=== PATIENT | female | born 1980 | race African-American/Black ===

== ENCOUNTER 2018-07-25 18:54 | Inpatient (IN) ==
[2018-07-25] MEDS ORDERED: SODIUM CHLORIDE 0.9% 2,200 ML IV ONE (21:18)
[2018-07-25] MEDS ORDERED: ALBUTEROL 2.5 MG/3 ML NEB RESP TX PRN (21:18)
[2018-07-25] MEDS ORDERED: GLUCAGON 1 MG VIAL IM PRN (21:18)
[2018-07-25] MEDS ORDERED: DEXTROSE 50% 25 GM/50 ML SYRINGE IV PRN (21:18)
[2018-07-25] MEDS ORDERED: ONDANSETRON 4 MG/2 ML VIAL IV PRN (21:18)
[2018-07-25] MEDS ORDERED: ACETAMINOPHEN 325 MG TABLET PO PRN (21:18)
[2018-07-25] MEDS ORDERED: ZALEPLON 5 MG CAPSULE PO PRN (21:18)
[2018-07-25] MEDS ORDERED: MELOXICAM 7.5 MG TABLET PO PRN (21:28)
[2018-07-25] MEDS: PHENYTOIN ER 100 MG CAPSULE PO SCH (22:19)
[2018-07-25] MEDS: GABAPENTIN 300 MG CAPSULE PO SCH (22:19)
[2018-07-25] MEDS: levETIRAcetam 500 MG TABLET PO SCH (22:19)
[2018-07-25] MEDS: INSULIN REGULAR 100 UNIT/ML SUBCUT SCH (22:20)
[2018-07-25] MEDS: ENOXAPARIN 30 MG/0.3 ML SYRINGE SUBCUT SCH (22:24)
[2018-07-26] MEDS: SODIUM CHLORIDE 0.9% 1,000 ML IV SCH ×3 (00:41→16:08)
[2018-07-26 07:23] LABS: Basophils % 0.4 % (0.0-0.8); Eosinophils # 0.4 10*3/uL (0.0-0.87); Eosinophils % 6.8 % (0.00-10.9); Immature Granulocytes % 0.2 %; Immature Granulocytes Absolute 0.01 #; Lymphocytes # 1.6 10*3/uL (1.4-4.0); Lymphocytes % 29.1 % (21.3-54.2); Mean Corpuscular HGB Conc 29.6 GM/DL (32-36); Mean Corpuscular Hemoglobin 23 PG (27-34); Mean Corpuscular Volume 77.8 FL (87-102); Mean Platelet Volume 9.3 FL (9.6-12.0); Monocytes # 0.5 10*3/uL (0.11-0.8); Monocytes % 8.4 % (1.7-12.7); Neutrophils # 2.9 10*3/uL (1.4-7.4); Neutrophils % 55.1 % (38.7-73.9); Platelet Count 195 T/CUMM (130-400); Red Blood Count 3.47 MC/CUMM (3.8-5.5); White Blood Count 5.3 T/CUMM (4-12)
[2018-07-26 07:37] LABS: Alanine Aminotransferase 18 U/L (13-56); Albumin 2.3 G/DL (3.4-5.0); Alkaline Phosphatase 119 U/L (45-117); Aspartate Amino Transferase 19 U/L (0-37); Bilirubin,Total < 0.39 MG/DL (0.2-1.0); Blood Urea Nitrogen 35 MG/DL (7-18); Calcium 6.9 MG/DL (8.5-10.1); Glucose 144 MG/DL (74-106); Osmolality,Calculated 287.5 MOS/KG (273-304); Potassium 4.3 MMOL/L (3.5-5.1); Sodium 139 MMOL/L (136-145); Total Protein 5.9 G/DL (6.4-8.3)
[2018-07-26] MEDS: INSULIN REGULAR 100 UNIT/ML SUBCUT SCH ×4 (07:43→20:18)
[2018-07-26] MEDS: levETIRAcetam 500 MG TABLET PO SCH ×2 (08:52→20:16)
[2018-07-26] MEDS: PIPERACILLIN/TAZOBACTAM 3,375 MG in SODIUM CHLORIDE 0.9% 100 ML IV SCH ×2 (08:52→20:17)
[2018-07-26] MEDS: PANTOPRAZOLE 40 MG TABLET PO SCH (08:52)
[2018-07-26] MEDS: PHENYTOIN ER 100 MG CAPSULE PO SCH ×3 (08:52→20:16)
[2018-07-26] MEDS: GABAPENTIN 300 MG CAPSULE PO SCH ×3 (08:52→20:17)
[2018-07-26] MEDS: METOPROLOL TARTRATE 25 MG TABLET PO SCH ×2 (09:59→20:17)
[2018-07-26] MEDS: amLODIPine 10 MG TABLET PO SCH (09:59)
[2018-07-26] MEDS: ENOXAPARIN 30 MG/0.3 ML SYRINGE SUBCUT SCH (20:31)
[2018-07-26 21:39] LABS: Apearance,Urine CLOUDY (Clear); Bacteria,Urine Many /HPF (Few); Bilirubin,Urine Negative (Negative); Blood, Urine Large mg/dL (Negative); Glucose,Urine (UA) 50 mg/dL (Negative); Ketones,Urine 5 mg/dL (Negative); Nitrite,Urine Positive (Negative); Protein,Urine 100 MG/DL; RBC,Urine 158 /HPF (0-4); Squamous Epithelial Cell,Urine Occasional /HPF (0-10); Urine Color Yellow (Yellow); Urine Urobilinogen < 2.0 EU/DL (0.2-1.0)
[2018-07-26 21:48] LABS: WBC,Urine TNTC /HPF (0-6)
[2018-07-27] MEDS: SODIUM CHLORIDE 0.9% 1,000 ML IV SCH ×2 (00:51→07:59)
[2018-07-27] MEDS: INSULIN REGULAR 100 UNIT/ML SUBCUT SCH ×4 (09:35→20:42)
[2018-07-27] MEDS: levETIRAcetam 500 MG TABLET PO SCH ×2 (09:36→20:45)
[2018-07-27] MEDS: PIPERACILLIN/TAZOBACTAM 3,375 MG in SODIUM CHLORIDE 0.9% 100 ML IV SCH ×2 (09:36→20:45)
[2018-07-27] MEDS: amLODIPine 10 MG TABLET PO SCH (09:36)
[2018-07-27] MEDS: GABAPENTIN 300 MG CAPSULE PO SCH ×3 (09:36→20:45)
[2018-07-27] MEDS: PHENYTOIN ER 100 MG CAPSULE PO SCH ×3 (09:36→20:42)
[2018-07-27] MEDS: PANTOPRAZOLE 40 MG TABLET PO SCH (09:36)
[2018-07-27] MEDS: METOPROLOL TARTRATE 25 MG TABLET PO SCH ×2 (09:36→20:45)
[2018-07-27] MEDS ORDERED: INSULIN GLARGINE 100 UNIT/ML SUBCUT SCH (21:00)
[2018-07-27] MEDS: ENOXAPARIN 30 MG/0.3 ML SYRINGE SUBCUT SCH (22:16)
[2018-07-28 04:36] LABS: Basophils % 0.5 % (0.0-0.8); Eosinophils # 0.4 10*3/uL (0.0-0.87); Hematocrit 27.2 VOL% (35.7-47.0); Hemoglobin 8.1 GM/DL (12.0-16.0); Immature Granulocytes % 0.5 %; Immature Granulocytes Absolute 0.03 #; Lymphocytes # 2.7 10*3/uL (1.4-4.0); Lymphocytes % 48.2 % (21.3-54.2); Mean Corpuscular HGB Conc 29.8 GM/DL (32-36); Mean Corpuscular Hemoglobin 23 PG (27-34); Mean Corpuscular Volume 77.1 FL (87-102); Mean Platelet Volume 11.1 FL (9.6-12.0); Monocytes # 0.5 10*3/uL (0.11-0.8); Monocytes % 8.1 % (1.7-12.7); Neutrophils % 35.7 % (38.7-73.9); Platelet Count 207 T/CUMM (130-400); Red Blood Count 3.53 MC/CUMM (3.8-5.5); Red Cell Distribution Width 15.4 % (9.3-17.3); White Blood Count 5.6 T/CUMM (4-12)
[2018-07-28 04:46] LABS: Calcium 7.6 MG/DL (8.5-10.1); Osmolality,Calculated 283.7 MOS/KG (273-304); Potassium 3.9 MMOL/L (3.5-5.1)
[2018-07-28 06:07] LABS: Anisocytosis 1+; Eosinophils 7 % (0-10); Lymphocytes 48 % (20-55); Platelet Estimate Adequate; Segmented Neutrophils 40 % (50-85); Total Cells Counted 100
[2018-07-28 06:08] LABS: Hypochromasia 1+
[2018-07-28] MEDS: INSULIN LISPRO 100 UNIT/ML SUBCUT SCH ×3 (08:52→17:10)
[2018-07-28] MEDS: PIPERACILLIN/TAZOBACTAM 3,375 MG in SODIUM CHLORIDE 0.9% 100 ML IV SCH (08:53)
[2018-07-28] MEDS: INSULIN REGULAR 100 UNIT/ML SUBCUT SCH ×3 (08:53→16:15)
[2018-07-28] MEDS: levETIRAcetam 500 MG TABLET PO SCH (08:55)
[2018-07-28] MEDS: GABAPENTIN 300 MG CAPSULE PO SCH ×2 (08:55→14:40)
[2018-07-28] MEDS: PHENYTOIN ER 100 MG CAPSULE PO SCH ×2 (08:56→14:40)
[2018-07-28] MEDS: amLODIPine 10 MG TABLET PO SCH (08:56)
[2018-07-28] MEDS: PANTOPRAZOLE 40 MG TABLET PO SCH (08:56)
[2018-07-28] MEDS: METOPROLOL TARTRATE 25 MG TABLET PO SCH (08:56)
[2018-07-28 16:18] VITALS: BP 147/83
== END 2018-07-28 17:20 | disposition home or self-care (01) | DRG 463 ==
LOC: SUATTDRO 20:36 → N.ICU 20:36 → N.5E 07-27 13:55
PROVIDERS: ADMIT Internal Medicine; ATTEND Hospitalist

== ENCOUNTER 2019-02-26 13:32 | Inpatient (IN) ==
[2019-02-26] MEDS ORDERED: PROPOFOL 1,000 MG/100 ML BOTTLE IV ONE (14:38)
[2019-02-26] MEDS: PROPOFOL 1,000 MG/100 ML BOTTLE IV SCH (16:45)
[2019-02-26 17:05] LABS: ABG Base Excess -6.5 MMOL/L (-2.5-2.5); ABG HCO3 19.1 MMOL/L (20-26); ABG PCO2 23.8 MM HG (35-48); ABG PH 7.451 (7.35-7.45); ABG TCO2 15.5 MMOL/L (23-27)
[2019-02-26] MEDS ORDERED: MIDAZOLAM 100 MG in SODIUM CHLORIDE 0.9% 80 ML IV PRN (17:20)
[2019-02-26] MEDS ORDERED: MAGNESIUM SULF RIDER 4 GM in PREMIX 1 EACH IV PRN (17:20)
[2019-02-26] MEDS ORDERED: MAGNESIUM SULF RIDER 2 GM in PREMIX 1 EACH IV PRN (17:20)
[2019-02-26] MEDS ORDERED: INFLUENZA VIRUS VACCINE 0.5 ML SYRINGE IM ONE (17:21)
[2019-02-26] MEDS ORDERED: LORazepam 2 MG/1 ML VIAL IV PRN (17:23)
[2019-02-26 17:37] LABS: Apearance,Urine CLEAR (Clear); Bacteria,Urine Occasional /HPF (Few); Bilirubin,Urine Negative (Negative); Blood, Urine Negative (Negative); Glucose,Urine (UA) >=500 mg/dL (Negative); Ketones,Urine 5 mg/dL (Negative); Nitrite,Urine Negative (Negative); Protein,Urine 100 MG/DL; RBC,Urine 3 /HPF (0-4); Urine Color Colorless (Yellow); Urine Specific Gravity 1.009 (1.001-1.035); Urine Urobilinogen < 2.0 EU/DL (0.2-1.0); WBC,Urine 2 /HPF (0-6)
[2019-02-26] MEDS: SODIUM CHLORIDE 0.9% 1,000 ML IV SCH ×2 (17:50→22:12)
[2019-02-26] MEDS: PIPERACILLIN/TAZOBACTAM 3,375 MG in SODIUM CHLORIDE 0.9% 100 ML IV SCH (18:09)
[2019-02-26] MEDS: PHENYTOIN 100 MG/2 ML VIAL IV SCH (18:10)
[2019-02-26] MEDS: FAMOTIDINE 20 MG TABLET PO SCH (21:31)
[2019-02-26] MEDS: HEPARIN 5,000 UNIT/1 ML VIAL SUBCUT SCH (21:31)
[2019-02-26] MEDS: POTASSIUM CHLORIDE RIDER 10 MEQ in PREMIX 1 EACH IV PRN ×2 (22:08→23:16)
[2019-02-26] MEDS ORDERED: DEXTROSE 50% 25 GM/50 ML VIAL IV PRN (23:24)
[2019-02-26] MEDS ORDERED: GLUCAGON 1 MG VIAL IM PRN (23:24)
[2019-02-26] MEDS: INSULIN REGULAR 100 UNIT/ML SUBCUT SCH (23:59)
[2019-02-27] MEDS: PROPOFOL 1,000 MG/100 ML BOTTLE IV SCH ×2 (00:25→07:31)
[2019-02-27] MEDS: PHENYTOIN 100 MG/2 ML VIAL IV SCH ×2 (01:28→09:09)
[2019-02-27] MEDS: PIPERACILLIN/TAZOBACTAM 3,375 MG in SODIUM CHLORIDE 0.9% 100 ML IV SCH ×3 (01:29→17:45)
[2019-02-27] MEDS: SODIUM CHLORIDE 0.9% 1,000 ML IV SCH ×5 (02:14→23:58)
[2019-02-27 04:02] LABS: Basophils % 0.4 % (0.0-0.8); Eosinophils # 0.2 10*3/uL (0.0-0.87); Eosinophils % 2.2 % (0.00-10.9); Hematocrit 23.1 VOL% (35.7-47.0); Hemoglobin 7.3 GM/DL (12.0-16.0); Immature Granulocytes % 0.5 %; Immature Granulocytes Absolute 0.05 #; Lymphocytes # 2.3 10*3/uL (1.4-4.0); Mean Corpuscular HGB Conc 31.6 GM/DL (32-36); Mean Corpuscular Volume 72.4 FL (87-102); Mean Platelet Volume 9.6 FL (9.6-12.0); Monocytes % 7.5 % (1.7-12.7); Neutrophils % 66.4 % (38.7-73.9); Platelet Count 255 T/CUMM (130-400); Red Blood Count 3.19 MC/CUMM (3.8-5.5); Red Cell Distribution Width 16.1 % (9.3-17.3)
[2019-02-27 04:26] LABS: Alanine Aminotransferase 11 U/L (13-56); Alkaline Phosphatase 97 U/L (45-117); Aspartate Amino Transferase 14 U/L (0-37); Bilirubin,Total < 0.39 MG/DL (0.2-1.0); Blood Urea Nitrogen 16 MG/DL (7-18); Calcium 6.7 MG/DL (8.5-10.1); Estimated Glom Filtration Rate 56 ML/MIN; Glucose 218 MG/DL (74-106); Total Protein 5.7 G/DL (6.4-8.3)
[2019-02-27 05:01] LABS: ABG Base Excess -6.2 MMOL/L (-2.5-2.5); ABG HCO3 17.5 MMOL/L (20-26); ABG Oxygen Saturation 99.2 % (95-100); ABG PCO2 27.9 MM HG (35-48); ABG PH 7.415 (7.35-7.45); ABG PO2 341.9 MM HG (80-95); ABG TCO2 18.3 MMOL/L (23-27); Allen Test Positive; Pt O2 Delivery Device Ventilator
[2019-02-27 05:30] LABS: Hepatitis B Core IgM Quant 0.23 Index; Hepatitis B Surface Ag Quant < 0.10 Index; Hepatitis B Surface Ag Result Negative (Negative); Hepatitis C Virus Ab Quant > 11.00 Index; Hepatitis C Virus Ab Result Positive (Negative)
[2019-02-27] MEDS: POTASSIUM CHLORIDE RIDER 10 MEQ in PREMIX 1 EACH IV PRN ×2 (05:30→10:51)
[2019-02-27] MEDS: HEPARIN 5,000 UNIT/1 ML VIAL SUBCUT SCH ×3 (05:35→21:36)
[2019-02-27] MEDS: INSULIN REGULAR 100 UNIT/ML SUBCUT SCH ×4 (05:57→23:39)
[2019-02-27] MEDS: FAMOTIDINE 20 MG TABLET PO SCH ×2 (09:09→20:25)
[2019-02-27] MEDS: GABAPENTIN 300 MG CAPSULE PO SCH ×3 (09:10→20:25)
[2019-02-27] MEDS: hydrALAZINE 20 MG/1 ML VIAL IV PRN (14:23)
[2019-02-27] MEDS: levETIRAcetam 250 MG TABLET PO SCH (20:24)
[2019-02-27] MEDS ORDERED: NITROGLYCERIN SL 0.4 MG TABLET SL ONE (21:11)
[2019-02-27] MEDS ORDERED: NITROGLYCERIN SL 0.4 MG TABLET SL PRN (21:57)
[2019-02-28] MEDS: hydrALAZINE 20 MG/1 ML VIAL IV PRN (00:06)
[2019-02-28] MEDS: PIPERACILLIN/TAZOBACTAM 3,375 MG in SODIUM CHLORIDE 0.9% 100 ML IV SCH ×3 (02:13→17:08)
[2019-02-28 02:26] LABS: Basophils # 0.1 10*3/uL (0.0-0.2); Basophils % 0.6 % (0.0-0.8); Eosinophils # 0.3 10*3/uL (0.0-0.87); Eosinophils % 3.6 % (0.00-10.9); Hematocrit 25.1 VOL% (35.7-47.0); Hemoglobin 7.7 GM/DL (12.0-16.0); Immature Granulocytes % 0.3 %; Immature Granulocytes Absolute 0.03 #; Lymphocytes # 2.7 10*3/uL (1.4-4.0); Lymphocytes % 31.1 % (21.3-54.2); Mean Corpuscular HGB Conc 30.7 GM/DL (32-36); Mean Platelet Volume 9.7 FL (9.6-12.0); Neutrophils % 56.4 % (38.7-73.9); Platelet Count 264 T/CUMM (130-400); Red Blood Count 3.39 MC/CUMM (3.8-5.5); White Blood Count 8.8 T/CUMM (4-12)
[2019-02-28 02:44] LABS: Alanine Aminotransferase 13 U/L (13-56); Albumin 1.9 G/DL (3.4-5.0); Alkaline Phosphatase 98 U/L (45-117); Aspartate Amino Transferase 16 U/L (0-37); Bilirubin,Total < 0.39 MG/DL (0.2-1.0); Blood Urea Nitrogen 9 MG/DL (7-18); Calcium 6.5 MG/DL (8.5-10.1); Estimated Glom Filtration Rate 59 ML/MIN; Glucose 190 MG/DL (74-106); Osmolality,Calculated 286.1 MOS/KG (273-304); Total Protein 5.6 G/DL (6.4-8.3)
[2019-02-28] MEDS: SODIUM CHLORIDE 0.9% 1,000 ML IV SCH ×2 (03:12→07:50)
[2019-02-28 03:44] LABS: ABG Base Excess -8.4 MMOL/L (-2.5-2.5); ABG HCO3 17.3 MMOL/L (20-26); ABG Oxygen Saturation 97.7 % (95-100); ABG PCO2 36.3 MM HG (35-48); ABG PH 7.296 (7.35-7.45); ABG PO2 113.8 MM HG (80-95); ABG TCO2 18.4 MMOL/L (23-27)
[2019-02-28] MEDS: HEPARIN 5,000 UNIT/1 ML VIAL SUBCUT SCH ×3 (05:08→21:04)
[2019-02-28] MEDS: INSULIN REGULAR 100 UNIT/ML SUBCUT SCH ×6 (05:09→23:35)
[2019-02-28] MEDS ORDERED: MAGNESIUM SULF RIDER 2 GM in PREMIX 1 EACH IV ONE (08:04)
[2019-02-28] MEDS: FAMOTIDINE 20 MG TABLET PO SCH ×2 (08:40→20:57)
[2019-02-28] MEDS: levETIRAcetam 250 MG TABLET PO SCH ×2 (08:40→20:57)
[2019-02-28] MEDS: GABAPENTIN 300 MG CAPSULE PO SCH ×3 (08:40→20:57)
[2019-03-01] MEDS: PIPERACILLIN/TAZOBACTAM 3,375 MG in SODIUM CHLORIDE 0.9% 100 ML IV SCH ×2 (02:24→09:20)
[2019-03-01 04:44] LABS: Basophils % 0.6 % (0.0-0.8); Eosinophils # 0.3 10*3/uL (0.0-0.87); Eosinophils % 5.9 % (0.00-10.9); Hematocrit 26.5 VOL% (35.7-47.0); Immature Granulocytes % 0.4 %; Immature Granulocytes Absolute 0.02 #; Lymphocytes # 1.9 10*3/uL (1.4-4.0); Lymphocytes % 39.1 % (21.3-54.2); Mean Corpuscular HGB Conc 30.2 GM/DL (32-36); Mean Corpuscular Volume 73.8 FL (87-102); Mean Platelet Volume 9.5 FL (9.6-12.0); Monocytes % 7.3 % (1.7-12.7); Neutrophils % 46.7 % (38.7-73.9); Platelet Count 273 T/CUMM (130-400); Red Blood Count 3.59 MC/CUMM (3.8-5.5); Red Cell Distribution Width 17.2 % (9.3-17.3); White Blood Count 4.9 T/CUMM (4-12)
[2019-03-01 05:09] LABS: Albumin 2.1 G/DL (3.4-5.0); Bilirubin,Total 0.6 MG/DL (0.2-1.0); Calcium 7.8 MG/DL (8.5-10.1); Osmolality,Calculated 286.3 MOS/KG (273-304); Total Protein 6.6 G/DL (6.4-8.3)
[2019-03-01] MEDS: HEPARIN 5,000 UNIT/1 ML VIAL SUBCUT SCH ×3 (05:51→21:48)
[2019-03-01] MEDS: INSULIN REGULAR 100 UNIT/ML SUBCUT SCH ×4 (08:15→21:47)
[2019-03-01] MEDS: levETIRAcetam 250 MG TABLET PO SCH ×2 (08:17→21:48)
[2019-03-01] MEDS: GABAPENTIN 300 MG CAPSULE PO SCH ×3 (08:17→21:48)
[2019-03-01] MEDS: hydrALAZINE 20 MG/1 ML VIAL IV PRN (08:18)
[2019-03-01] MEDS: FAMOTIDINE 20 MG TABLET PO SCH ×2 (08:18→21:48)
[2019-03-01] MEDS ORDERED: BUTALBITAL/ACETAMIN/CAFFEINE 50-325-40 MG TABLET PO ONE (09:09)
[2019-03-01] MEDS ORDERED: carvediloL 3.125 MG TABLET PO SCH (09:37)
[2019-03-01] MEDS: amLODIPine 10 MG TABLET PO SCH (11:05)
[2019-03-01] MEDS ORDERED: METOPROLOL TARTRATE 50 MG TABLET PO ONE (11:47)
[2019-03-01] MEDS ORDERED: SODIUM CHLORIDE 0.9% 500 ML IV ONE (12:00)
[2019-03-01] MEDS ORDERED: SUMAtriptan 6 MG/0.5 ML VIAL SUBCUT ONE (12:35)
[2019-03-02] MEDS: HEPARIN 5,000 UNIT/1 ML VIAL SUBCUT SCH (05:06)
[2019-03-02] MEDS: INSULIN REGULAR 100 UNIT/ML SUBCUT SCH ×2 (07:25→11:54)
[2019-03-02] MEDS: hydrALAZINE 20 MG/1 ML VIAL IV PRN (07:27)
[2019-03-02 08:12] LABS: Basophils # 0.1 10*3/uL (0.0-0.2); Basophils % 0.8 % (0.0-0.8); Eosinophils # 0.3 10*3/uL (0.0-0.87); Eosinophils % 4.3 % (0.00-10.9); Hematocrit 27.9 VOL% (35.7-47.0); Hemoglobin 8.7 GM/DL (12.0-16.0); Immature Granulocytes % 0.3 %; Immature Granulocytes Absolute 0.02 #; Lymphocytes # 2.6 10*3/uL (1.4-4.0); Lymphocytes % 39.9 % (21.3-54.2); Mean Corpuscular HGB Conc 31.2 GM/DL (32-36); Mean Corpuscular Volume 73.4 FL (87-102); Mean Platelet Volume 10.1 FL (9.6-12.0); Monocytes % 6.6 % (1.7-12.7); Neutrophils % 48.1 % (38.7-73.9); Platelet Count 275 T/CUMM (130-400); Red Cell Distribution Width 17.2 % (9.3-17.3); White Blood Count 6.5 T/CUMM (4-12)
[2019-03-02 08:30] LABS: Alanine Aminotransferase 16 U/L (13-56); Albumin 2.4 G/DL (3.4-5.0); Alkaline Phosphatase 106 U/L (45-117); Aspartate Amino Transferase 12 U/L (0-37); Bilirubin,Total < 0.39 MG/DL (0.2-1.0); Blood Urea Nitrogen 10 MG/DL (7-18); Calcium 8.2 MG/DL (8.5-10.1); Estimated Glom Filtration Rate 49 ML/MIN; Glucose 297 MG/DL (74-106); Osmolality,Calculated 282.8 MOS/KG (273-304)
[2019-03-02] MEDS ORDERED: METOPROLOL TARTRATE 25 MG TABLET PO ONE (08:36)
[2019-03-02] MEDS: levETIRAcetam 250 MG TABLET PO SCH (09:25)
[2019-03-02] MEDS: FAMOTIDINE 20 MG TABLET PO SCH (09:25)
[2019-03-02] MEDS: amLODIPine 10 MG TABLET PO SCH (09:25)
[2019-03-02] MEDS: GABAPENTIN 300 MG CAPSULE PO SCH (09:25)
[2019-03-02 12:10] VITALS: BP 138/75
== END 2019-03-02 14:35 | disposition home or self-care (01) | DRG 53 ==
LOC: N.ICU 16:00 → SUATTDRO 16:00 → INTOOBSV 16:00 → SUATTDRO 02-27 10:08 → N.4E 02-28 13:46
PROVIDERS: ADMIT Internal Medicine; ATTEND Hospitalist

== ENCOUNTER 2019-12-27 12:10 | Inpatient (IN) ==
[2019-12-27] MEDS ORDERED: ONDANSETRON 4 MG/2 ML VIAL IV PRN (15:12)
[2019-12-27] MEDS ORDERED: ACETAMINOPHEN 325 MG TABLET PO PRN (15:12)
[2019-12-27] MEDS ORDERED: hydrALAZINE 20 MG/1 ML VIAL IV PRN (15:12)
[2019-12-27] MEDS ORDERED: DEXTROSE 50% 25 GM/50 ML VIAL IV PRN (15:15)
[2019-12-27] MEDS ORDERED: GLUCAGON 1 MG VIAL IM PRN (15:15)
[2019-12-27] MEDS ORDERED: INSULIN REGULAR DRIP 100 ML IV PRN (15:38)
[2019-12-27] MEDS ORDERED: LORazepam 2 MG/1 ML VIAL IV PRN (15:40)
[2019-12-27] MEDS ORDERED: DEXTROSE 50% 25 GM/50 ML VIAL IV ONE (15:54)
[2019-12-27] MEDS ORDERED: SODIUM BICARB INJ 150 MEQ in DEXTROSE 5% 850 ML IV SCH (16:00)
[2019-12-27 16:20] LABS: Basophils # 0.1 10*3/uL (0.0-0.2); Basophils % 0.9 % (0.0-0.8); Eosinophils # 0.2 10*3/uL (0.0-0.87); Eosinophils % 1.7 % (0.00-10.9); Hematocrit 31.3 VOL% (35.7-47.0); Hemoglobin 10.5 GM/DL (12.0-16.0); Immature Granulocytes % 8.1 %; Immature Granulocytes Absolute 0.73 #; Lymphocytes # 1.5 10*3/uL (1.4-4.0); Lymphocytes % 16.7 % (21.3-54.2); Mean Corpuscular HGB Conc 33.5 GM/DL (32-36); Mean Corpuscular Volume 76.9 FL (87-102); Mean Platelet Volume 10.4 FL (9.6-12.0); Monocytes % 16.6 % (1.7-12.7); Platelet Count 320 T/CUMM (130-400); Red Blood Count 4.07 MC/CUMM (3.8-5.5); Red Cell Distribution Width 21.5 % (9.3-17.3)
[2019-12-27 16:40] LABS: Alanine Aminotransferase 13 U/L (13-56); Albumin 1.6 G/DL (3.4-5.0); Alkaline Phosphatase 65 U/L (45-117); Aspartate Amino Transferase 25 U/L (0-37); Bilirubin,Total < 0.39 MG/DL (0.2-1.0); Blood Urea Nitrogen 94 MG/DL (7-18); Calcium 8.6 MG/DL (8.5-10.1); Estimated Glom Filtration Rate 3 ML/MIN; Osmolality,Calculated 311.8 MOS/KG (273-304); Total Protein 6.5 G/DL (6.4-8.3)
[2019-12-27 16:48] LABS: INR 1.1; PT Patient Result 11.5 SECS (9.8-11.9); Partial Thromboplastin Time 45.3 SECS (23.9-33.8)
[2019-12-27 16:49] LABS: Glucose 40 MG/DL (74-106)
[2019-12-27 17:31] LABS: Hepatitis B Core IgM Quant 0.28 Index; Hepatitis B Surface Ag Quant < 0.10 Index; Hepatitis B Surface Ag Result Negative (Negative); Hepatitis C Virus Ab Quant > 11.00 Index; Hepatitis C Virus Ab Result Positive (Negative)
[2019-12-27 18:03] LABS: Band Neutrophils 10 % (0-10); Eosinophils 3 % (0-10); Lymphocytes 19 % (20-55); Segmented Neutrophils 59 % (50-85); Total Cells Counted 100
[2019-12-27 18:04] LABS: Microcytosis Slight; Platelet Estimate Adequate
[2019-12-27] MEDS: INSULIN LISPRO 100 UNIT/ML SUBCUT SCH ×2 (18:10→21:52)
[2019-12-27 18:41] LABS: Apearance,Urine Slightly Hazy (Clear); Bilirubin,Urine Negative (Negative); Blood, Urine Small mg/dL (Negative); Glucose,Urine (UA) >=500 mg/dL (Negative); Ketones,Urine Negative (Negative); Nitrite,Urine Negative (Negative); Protein,Urine >=500 MG/DL; RBC,Urine 65 /HPF (0-4); Squamous Epithelial Cell,Urine Occasional /HPF (0-10); Urine Color Yellow (Yellow); Urine Specific Gravity 1.018 (1.001-1.035); Urine Urobilinogen < 2.0 EU/DL (0.2-1.0); WBC,Urine 45 /HPF (0-6)
[2019-12-27 19:09] LABS: Barbiturates Screen,Urine Negative (Negative); Benzodiazepines Screen,Urine Negative (Negative); Cannabinoid Screen,Urine Negative (Negative); Opiate Screen,Urine Negative (Negative); Phencyclidine Screen,Urine Negative (Negative)
[2019-12-27] MEDS: DOCUSATE SODIUM 100 MG CAPSULE PO SCH (21:43)
[2019-12-27] MEDS: FAMOTIDINE 20 MG TABLET PO SCH (21:51)
[2019-12-27] MEDS: PHENYTOIN ER 100 MG CAPSULE PO SCH (21:51)
[2019-12-28 04:35] LABS: Basophils # 0.1 10*3/uL (0.0-0.2); Basophils % 1.2 % (0.0-0.8); Eosinophils # 0.2 10*3/uL (0.0-0.87); Hematocrit 27.5 VOL% (35.7-47.0); Hemoglobin 9.3 GM/DL (12.0-16.0); Immature Granulocytes Absolute 0.99 #; Lymphocytes # 1.5 10*3/uL (1.4-4.0); Lymphocytes % 19.2 % (21.3-54.2); Mean Corpuscular HGB Conc 33.8 GM/DL (32-36); Monocytes % 14.5 % (1.7-12.7); Neutrophils % 50.1 % (38.7-73.9); Platelet Count 149 T/CUMM (130-400); Red Blood Count 3.62 MC/CUMM (3.8-5.5); Red Cell Distribution Width 21.2 % (9.3-17.3); White Blood Count 7.6 T/CUMM (4-12)
[2019-12-28 05:11] LABS: Band Neutrophils 2 % (0-10); Burr Cells Slight; Hypochromasia 1+; Lymphocytes 16 % (20-55); Ovalocytes Slight; Segmented Neutrophils 73 % (50-85); Total Cells Counted 100
[2019-12-28 05:12] LABS: Microcytosis Slight
[2019-12-28 05:18] LABS: Calcium 7.7 MG/DL (8.5-10.1); Osmolality,Calculated 297.5 MOS/KG (273-304); Risk Ratio 3.08; VLDL CHOLESTEROL 17.2 MG/DL
[2019-12-28 06:16] LABS: Sedimentation Rate-Westergren 85 MM/HR (0-20)
[2019-12-28] MEDS ORDERED: HEPARIN 10,000 UNIT/10 ML VIAL IV PRN (06:44)
[2019-12-28] MEDS: INSULIN LISPRO 100 UNIT/ML SUBCUT SCH ×4 (07:51→20:19)
[2019-12-28] MEDS: DOCUSATE SODIUM 100 MG CAPSULE PO SCH ×2 (08:30→20:17)
[2019-12-28] MEDS: PHENYTOIN ER 100 MG CAPSULE PO SCH ×3 (08:30→20:24)
[2019-12-28] MEDS: FAMOTIDINE 20 MG TABLET PO SCH ×2 (08:30→20:17)
[2019-12-28] MEDS ORDERED: levETIRAcetam 500 MG TABLET PO SCH (09:00)
[2019-12-28] MEDS: SERTRALINE 50 MG TABLET PO SCH (20:17)
[2019-12-28] MEDS: GABAPENTIN 300 MG CAPSULE PO SCH (20:17)
[2019-12-28] MEDS: levETIRAcetam 500 MG TABLET PO SCH (20:18)
[2019-12-29] MEDS ORDERED: MORPHINE 4 MG/1 ML VIAL IV PRN (00:02)
[2019-12-29 04:55] LABS: Calcium 7.6 MG/DL (8.5-10.1); Osmolality,Calculated 300.4 MOS/KG (273-304)
[2019-12-29] MEDS: PHENYTOIN ER 100 MG CAPSULE PO SCH ×3 (09:28→20:01)
[2019-12-29] MEDS: GABAPENTIN 300 MG CAPSULE PO SCH ×3 (09:29→20:01)
[2019-12-29] MEDS: DOCUSATE SODIUM 100 MG CAPSULE PO SCH ×2 (09:29→20:02)
[2019-12-29] MEDS: FAMOTIDINE 20 MG TABLET PO SCH ×2 (09:29→20:02)
[2019-12-29] MEDS: METOPROLOL SUCCINATE XL 50 MG TABLET PO SCH (09:29)
[2019-12-29] MEDS: levETIRAcetam 500 MG TABLET PO SCH ×2 (09:30→20:02)
[2019-12-29] MEDS: INSULIN LISPRO 100 UNIT/ML SUBCUT SCH ×3 (09:30→18:59)
[2019-12-29] MEDS ORDERED: ceFAZolin 1,000 MG in SYRINGE 1 EACH IV ONE (12:00)
[2019-12-29] MEDS ORDERED: HEPARIN 5,000 UNIT/1 ML VIAL ONE (15:04)
[2019-12-29] MEDS ORDERED: BUPIVACAINE 0.5% 50 ML VIAL ONE (15:04)
[2019-12-29] MEDS ORDERED: LIDOCAINE 1%/EPI INJ 20 ML VIAL ONE (15:04)
[2019-12-29] MEDS ORDERED: METOCLOPRAMIDE 10 MG/2 ML VIAL ONE (16:13)
[2019-12-29] MEDS ORDERED: FAMOTIDINE 20 MG/2 ML VIAL IV ONE (16:13)
[2019-12-29] MEDS ORDERED: propofoL 200 MG/20 ML VIAL IV ONE (17:38)
[2019-12-29] MEDS ORDERED: CALCIUM CHLORIDE 1,000 MG/10 ML VIAL IV ONE (17:38)
[2019-12-29] MEDS ORDERED: SEVOFLURANE 1 UNIT/15 MINUTE INH ONE (17:38)
[2019-12-29] MEDS ORDERED: PHENYLEPHRINE 1 MG/10 ML SYRINGE IV ONE (17:39)
[2019-12-29] MEDS ORDERED: SODIUM CHLORIDE 0.9% 500 ML IV ONE (17:39)
[2019-12-29] MEDS ORDERED: ONDANSETRON 4 MG/2 ML VIAL ONE (17:39)
[2019-12-29] MEDS: SERTRALINE 50 MG TABLET PO SCH (20:02)
[2019-12-30] MEDS: PHENYTOIN ER 100 MG CAPSULE PO SCH ×5 (00:26→20:57)
[2019-12-30] MEDS: INSULIN LISPRO 100 UNIT/ML SUBCUT SCH ×5 (00:26→20:54)
[2019-12-30 04:37] LABS: Calcium 8.3 MG/DL (8.5-10.1)
[2019-12-30] MEDS: DOCUSATE SODIUM 100 MG CAPSULE PO SCH ×2 (09:37→20:57)
[2019-12-30] MEDS: GABAPENTIN 300 MG CAPSULE PO SCH ×3 (09:38→20:52)
[2019-12-30] MEDS: METOPROLOL SUCCINATE XL 50 MG TABLET PO SCH (09:38)
[2019-12-30] MEDS: FAMOTIDINE 20 MG TABLET PO SCH ×2 (09:38→20:52)
[2019-12-30] MEDS: levETIRAcetam 500 MG TABLET PO SCH ×2 (09:38→20:53)
[2019-12-30] MEDS: SERTRALINE 50 MG TABLET PO SCH (20:54)
[2019-12-31] MEDS: INSULIN LISPRO 100 UNIT/ML SUBCUT SCH ×2 (08:16→13:26)
[2019-12-31 11:55] VITALS: BP 144/76
[2019-12-31] MEDS: FAMOTIDINE 20 MG TABLET PO SCH (12:18)
[2019-12-31] MEDS: GABAPENTIN 300 MG CAPSULE PO SCH (12:18)
[2019-12-31] MEDS: levETIRAcetam 500 MG TABLET PO SCH (12:19)
[2019-12-31] MEDS: METOPROLOL SUCCINATE XL 50 MG TABLET PO SCH (12:19)
[2019-12-31] MEDS: DOCUSATE SODIUM 100 MG CAPSULE PO SCH (12:20)
[2019-12-31] MEDS: PHENYTOIN ER 100 MG CAPSULE PO SCH ×2 (12:20→12:21)
== END 2019-12-31 15:00 | disposition home or self-care (01) | DRG 469 ==
LOC: N.ICU 15:32 → SUATTDRO 15:32 → N.5E 12-28 18:28
PROVIDERS: ADMIT Internal Medicine; ATTEND Internal Medicine Geriatric Medicine